=== PATIENT | male | born 1930 | race Caucasian/White ===

== ENCOUNTER 2016-09-21 03:17 | Emergency (ER) | payer OTHER ==
--- NOTE | 2016-09-21 03:48 | CPEKG ---
Heart Rate: 84 RR Interval: 714 QRSD Interval: 90 QT Interval: 366 QTC Interval: 433 QRS [place]: 49 T Wave [place]: 43 EKG Severity - ABNORMAL ECG - EKG Impression: ATRIAL FIBRILLATION, V-RATE 68-109 EKG Impression: PROBABLE ANTEROSEPTAL INFARCT, AGE INDETERM Electronically Signed By: Uriel Palomares 21-Sep-2016 05:16:18
--- NOTE | 2016-09-21 03:49 | EDPHY ---
H & P Time Seen by Provider: 09/21/16 03:29 HPI/ROS: Chief Complaint: Shortness of breath HPI: 86-year-old male presenting with complaints of shortness of breath. Patient states that he was laying in bed having not going to sleepy at when he had the sensation of the [place] to take a full breath. This lasted for a few seconds. This occurred twice more within the next few minutes. He does wear oxygen 2 L at night. Did not have any chest pain. Has not had any cough, fevers, chills, or any other upper respiratory symptoms. He has been having some mild lower abdominal distention which is usual for him. No vomiting or diarrhea. Has not had any further episodes of the same. Has not had any syncope or falls. No palpitations. ROS: 10 point Review of Systems is negative except as noted in the HPI. PMH: BPH, Bilateral humerus fractures about a year ago with a none healing right mid shaft humerus Medications: Simvastatin, losartan, terazosin, finasteride, aspirin, B12, multivitamins Allergies: Penicillin and sulfa Social History: No smoking, no alcohol, no recreational drug use Family History: non-contributory Physical Exam: Gen: Awake, Alert, No Distress HEENT: Nose: no rhinorrhea Eyes: PERRLA, EOMI Mouth: Moist mucosa Neck: Supple, no JVD Chest: nontender, lungs clear to auscultation Heart: S1, S2 normal, no murmur Abd: Soft, non-tender, no guarding Back: no CVA tenderness, no midline tenderness Ext: no edema, right humerus in a splint for none union of a prior fracture, 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, cap refills less than 2 seconds Skin: no rash Neuro: CN II-XII intact, Sensation grossly intact, Strength 5/5 in bilateral upper and lower extremities - Medical/Surgical History Hx Asthma: No Hx Chronic Respiratory Disease: No Hx Diabetes: No Hx Cardiac Disease: No Hx Renal Disease: No Hx Cirrhosis: No Hx Alcoholism: No Hx HIV/AIDS: No Hx Splenectomy or Spleen Trauma: No Other PMH: high cholesterol, htn, prostate hx, macular degeneration - Social History Smoking Status: Former smoker Constitutional: Initial Vital Signs Temperature (C) 36.7 C 09/21/16 03:48 Heart Rate 77 09/21/16 03:48 Respiratory Rate 24 H 09/21/16 03:48 Blood Pressure 148/96 H 09/21/16 03:48 O2 Sat (%) 95 09/21/16 03:48 O2 Delivery Mode Nasal Cannula O2 (L/minute) 2 Allergies/Adverse Reactions: Penicillins Allergy (Unknown, Verified 03/16/11 23:19) Sulfa (Sulfonamide Antibiotics) Allergy (Unknown, Verified 03/16/11 23:19) Home Medications: Medication Instructions Recorded Aspirin EC [Aspirin EC 81 mg (*)] 81 mg PO DAILY 11/13/15 Finasteride [Proscar 5 MG (*)] 5 mg PO DAILY 11/13/15 Ibuprofen [Motrin (*)] 200 mg PO DAILY 11/13/15 Losartan Potassium [Cozaar 25 mg 25 mg PO DAILY 11/13/15 (*)] Omeprazole [Prilosec 20 mg] 20 mg PO BID 11/13/15 Simvastatin [Zocor] 20 mg PO HS 11/13/15 Terazosin HCl [Hytrin 5 MG (*)] 5 mg PO HS 11/13/15 Atorvastatin Calcium [Lipitor 10 10 mg PO HS #0 tab 11/15/15 mg (*)] Cefuroxime 09/21/16 Multivitamin 09/21/16 Vitamin B12 09/21/16 Medical Decision Making - Diagnostics EKG Interpretation: ECG time 3:46 a.m.: Atrial fibrillation with a rate of 68-109, normal axis, poor R-wave progression but no acute ST or T-wave changes. Imaging Results: Elevated left hemidiaphragm, cardiomegaly, chest x-ray is rotated, left-sided pleural effusion which is unchanged from prior. Imaging: I viewed and interpreted images myself ED Course/Re-evaluation: 86-year-old male presenting with episodes of shortness of breath. He is in a new atrial fibrillation here with a rate to 68 of 109 on his ECG. No history of atrial fibrillation in the past. Awaiting further electrolyte results, chest x-ray and further evaluation. 0400 patient while I was speaking with him began feeling increasingly short of breath again and noticed that he remained in atrial fibrillation but became bradycardic to the 40s. Patient became nauseated and vomited. Heart rate then came up to the 1 teens any was feeling better. Troponin is negative. [facility]. There are no beds available at [facility]. She will accept the patient transfer to the telemetry menon at [facility] for further evaluation. - Data Points Laboratory Results: Laboratory Results 09/21/16 03:41 09/21/16 03:41 09/21/16 09/21/16 03:41 03:41 WBC 13.31 10^3/uL H 10^3/uL (3.80-9.50) RBC 4.82 10^6/uL 10^6/uL (4.40-6.38) Hgb 14.5 g/dL g/dL (13.7-17.5) Hct 43.2 % % (40.0-51.0) MCV 89.6 fL fL (81.5-99.8) MCH 30.1 pg pg (27.9-34.1) MCHC 33.6 g/dL g/dL (32.4-36.7) RDW 14.7 % % (11.5-15.2) Plt Count 328 10^3/uL 10^3/uL (150-400) MPV 9.9 fL fL (8.7-11.7) Neut % (Auto) 87.2 % H % (39.3-74.2) Lymph % (Auto) 7.0 % L % (15.0-45.0) [place]on % (Auto) 5.2 % % (4.5-13.0) Eos % (Auto) 0.1 % L % (0.6-7.6) Baso % (Auto) 0.2 % L % (0.3-1.7) Nucleat RBC Rel Count 0.0 % % (0.0-0.2) Absolute Neuts (auto) 11.62 10^3/uL H 10^3/uL (1.70-6.50) Absolute Lymphs (auto) 0.93 10^3/uL L 10^3/uL (1.00-3.00) Absolute Monos (auto) 0.69 10^3/uL 10^3/uL (0.30-0.80) Absolute Eos (auto) 0.01 10^3/uL L 10^3/uL (0.03-0.40) Absolute Basos (auto) 0.02 10^3/uL 10^3/uL (0.02-0.10) Absolute Nucleated RBC 0.00 10^3/uL 10^3/uL (0-0.01) Immature Gran % 0.3 % % (0.0-1.1) Immature Gran # 0.04 10^3/uL 10^3/uL (0.00-0.10) Sodium 141 mEq/L mEq/L (134-144) Potassium 4.3 mEq/L mEq/L (3.5-5.2) Chloride 100 mEq/L mEq/L (97-110) Carbon Dioxide 26 mEq/l mEq/l (22-31) Anion Gap 15 mEq/L mEq/L (8-16) BUN 18 mg/dL mg/dL (7-23) Creatinine 0.6 mg/dL L mg/dL (0.7-1.3) Estimated GFR > 60 Glucose 151 mg/dL H mg/dL (70-100) Calcium 9.9 mg/dL mg/dL (8.5-10.4) Troponin I < 0.012 ng/mL ng/mL (0-0.034) Medications Given: Discontinued Medications Ondansetron HCl (Zofran) 4 mg IVP EDNOW ONE Stop: 09/21/16 04:01 Last Admin: 09/21/16 04:26 Dose: 4 mg Departure - Departure Disposition: Acute Care [facility] Clinical Impression: Atrial fibrillation, Bradycardia Condition: Fair Referrals: Patient,NotPresent [Unknown] - As per Instructions
[2016-09-21 03:54] LABS: % IMMATURE GRANULYOCYTES 0.3 % (0.0-1.1); ABSOLUTE IMMATURE GRANULOCYTES 0.04 10^3/uL (0.00-0.10); ADD DIFF? NO; ADD MORPH? NO; ADD SCAN? NO; ATYPICAL LYMPHOCYTE FLAG 10 (0-99); FRAGMENT RBC FLAG 0 (0-99); HEMATOCRIT 43.2 % (40.0-51.0); HEMOGLOBIN 14.5 g/dL (13.7-17.5); LEFT SHIFT FLG 0 (0-99); LIPEMIA HEMOLYSIS FLAG 80 (0-99); MEAN CELL HEMOGLOBIN 30.1 pg (27.9-34.1); MEAN CELL HEMOGLOBIN CONCENTR. 33.6 g/dL (32.4-36.7); MEAN CELL VOLUME 89.6 fL (81.5-99.8); MEAN PLATELET VOLUME 9.9 fL (8.7-11.7); PLATELET CLUMPS FLAG 0 (0-99); PLATELET COUNT 328 10^3/uL (150-400); RED BLOOD CELL COUNT 4.82 10^6/uL (4.40-6.38); RED CELL DISTRIBUTION WIDTH 14.7 % (11.5-15.2)
[2016-09-21] MEDS ORDERED: ONDANSETRON 4 MG/2 ML VIAL IVP ONE (04:00)
[2016-09-21] MEDS ORDERED: ONDANSETRON 4 MG/2 ML VIAL ONE (04:01)
[2016-09-21 04:10] LABS: ANION GAP 15 mEq/L (8-16); CALCIUM 9.9 mg/dL (8.5-10.4); CARBON DIOXIDE 26 mEq/l (22-31); CHLORIDE 100 mEq/L (97-110); CREATININE 0.6 mg/dL (0.7-1.3); GLOMERULAR FILTRATION RATE > 60; GLUCOSE 151 mg/dL (70-100); POTASSIUM 4.3 mEq/L (3.5-5.2); SODIUM 141 mEq/L (134-144)
[2016-09-21 04:21] LABS: TROPONIN I < 0.012 ng/mL (0-0.034)
[2016-09-21 04:52] VITALS: RESP 16
[2016-09-21 06:32] VITALS: BP 134/86; PULSE 81; TEMP 98.6; O2SAT 95
== END 2016-09-21 06:35 | disposition short-term general hospital (02) ==
LOC: EDUNIT#
DX: I48.91 Unspecified atrial fibrillation (principal); I10 Essential (primary) hypertension; Z79.82 Long term (current) use of aspirin; Z87.891 Personal history of nicotine dependence
CPT/HCPCS: 71010; 93005; 96374; 99285; J2405